=== PATIENT | male | born 1970 | race Caucasian/White ===

== ENCOUNTER 2016-05-31 12:22 | Emergency (ER) | payer OTHER ==
[~2016-05-31] VITALS: Ht 167.6 cm; Wt 67.6 kg
[~2016-05-31 12:22] MED LIST: NOHOMEMEDS; ZOLOFT100 M1 PO
[2016-05-31] MEDS ORDERED: KEFLEX500 MG PO (16:29)
[2016-05-31 16:38] VITALS: BP 112/76
== END 2016-05-31 16:39 | disposition home or self-care (01) ==
LOC: EME 12:22
PROC: 0H9BXZZ Drainage of Right Upper Arm Skin, External Approach (ICD-10-PCS; principal; 2016-05-31)
DX: L02.413 Cutaneous abscess of right upper limb (principal); F17.210 Nicotine dependence, cigarettes, uncomplicated
CPT/HCPCS: 99281; 99284